=== PATIENT | male | born 1950 | race Asian ===

== ENCOUNTER 2019-12-13 16:37 | Inpatient (IN) | payer BC, OTHER, SELFPAY ==
[~2019-12-13] VITALS: Ht 165.1 cm; Wt 68.0 kg
[2019-12-13 16:45] VITALS: Ht 165.1 cm; Wt 68.0 kg
[2019-12-13 17:30] LABS: BASOPHIL % 0.1 % (0-2); PLATELET COUNT 226 x10^3mcL (130-400); RED CELL DISTRIBUTION WIDTH 13.8 % (11.5-14.5)
[2019-12-13 17:39] LABS: CALCIUM 8.2 mg/dL (8.5-10.1); CARBON DIOXIDE 23.2 mmol/L (21-32); CHLORIDE SERUM 99 mmol/L (98-107); CREATININE SERUM 0.9 mg/dL (0.7-1.3); GFR1 > 60 mL/min; GLUCOSE SERUM 173 mg/dL (74-106); POTASSIUM SERUM 3.1 mmol/L (3.5-5.1); SODIUM SERUM 133 mmol/L (136-145)
[2019-12-13 17:45] LABS: ALKALINE PHOSPHATASE 329 U/L (46-116); ALT/SGPT 169 U/L (16-63); AST/SGOT 131 U/L (15-37); BILIRUBIN TOTAL 2.39 mg/dL (0.20-1.00); LACTIC DEHYDROGENASE (LDH) 476 U/L (100-190)
[2019-12-13 17:47] LABS: ALBUMIN 1.8 g/dL (3.4-5.0); TOTAL PROTEIN, SERUM 6.1 g/dL (6.4-8.2)
[2019-12-13 18:31] LABS: UA SPECIFIC GRAVITY 1.015 (1.005-1.035); microscopic required? YES; urine erythrocyte TRACE (NEGATIVE)
[2019-12-13 18:41] LABS: C REACTIVE PROTEIN 19.1 mg/dL (<=0.9)
[2019-12-13] MEDS ORDERED: PROAIR RES117 MCG/Ac (19:28)
[2019-12-13 20:09] LABS: MAGNESIUM 1.9 mg/dL (1.8-2.4); PHOSPHOROUS 2.2 mg/dL (2.5-4.9)
[2019-12-13 20:19] LABS: T3 TOTAL 0.83 ng/mL
[2019-12-13 20:22] LABS: CHOLESTEROL/HDL RATIO 5.1
[2019-12-13 20:35] LABS: FREE T4 1.81 ng/dL (0.76-1.46); FREE THYROXINE INDEX 3.2 ug/dL (1.4-4.5); T4(THYROXINE) 8.1 ug/dL (4.7-13.3)
[2019-12-13 22:11] VITALS: BP 124/70
[2019-12-14 01:00] VITALS: BP 124/70
[2019-12-14 05:46] VITALS: BP 138/72
[2019-12-14 07:10] LABS: PLATELET COUNT 206 x10^3mcL (130-400); RED CELL DISTRIBUTION WIDTH 13.9 % (11.5-14.5)
[2019-12-14 07:30] VITALS: BP 137/80
[2019-12-14 07:32] LABS: AMPHETAMINE QUAL UR NONE DETECTED (See below)
[2019-12-14 07:36] LABS: ALBUMIN 1.7 g/dL (3.4-5.0); ALKALINE PHOSPHATASE 290 U/L (46-116); ALT/SGPT 142 U/L (16-63); AST/SGOT 59 U/L (15-37); BILIRUBIN DIRECT 1.46 mg/dL (0.0-0.2); BILIRUBIN TOTAL 2.34 mg/dL (0.20-1.00); CALCIUM 8.2 mg/dL (8.5-10.1); CHLORIDE SERUM 103 mmol/L (98-107); CREATININE SERUM 0.9 mg/dL (0.7-1.3); GFR1 > 60 mL/min; GLUCOSE SERUM 109 mg/dL (74-106); MAGNESIUM 1.9 mg/dL (1.8-2.4); PHOSPHOROUS 3.2 mg/dL (2.5-4.9); SODIUM SERUM 137 mmol/L (136-145); TOTAL PROTEIN, SERUM 6.1 g/dL (6.4-8.2)
[2019-12-14 07:53] LABS: BASOPHIL % 0 % (0-2)
[2019-12-14 12:30] VITALS: BP 129/80
[2019-12-14 17:59] VITALS: BP 105/68
[2019-12-14 21:00] VITALS: BP 126/63
[2019-12-15 05:47] VITALS: BP 114/68
[2019-12-15 06:39] LABS: PLATELET COUNT 207 x10^3mcL (130-400); RED CELL DISTRIBUTION WIDTH 13.7 % (11.5-14.5)
[2019-12-15 06:53] LABS: BASOPHIL % 0 % (0-2)
[2019-12-15 06:55] LABS: CALCIUM 7.9 mg/dL (8.5-10.1); CARBON DIOXIDE 28.2 mmol/L (21-32); CHLORIDE SERUM 103 mmol/L (98-107); GFR1 > 60 mL/min; GLUCOSE SERUM 121 mg/dL (74-106); MAGNESIUM 1.8 mg/dL (1.8-2.4); PHOSPHOROUS 4.7 mg/dL (2.5-4.9); POTASSIUM SERUM 3.8 mmol/L (3.5-5.1); SODIUM SERUM 138 mmol/L (136-145)
[2019-12-15 07:21] LABS: C REACTIVE PROTEIN 3.9 mg/dL (<=0.9)
[2019-12-15 08:30] VITALS: BP 124/84
[2019-12-15 14:20] VITALS: BP 143/93
[2019-12-15 21:00] VITALS: BP 123/76
[2019-12-16 05:49] VITALS: BP 144/77
[2019-12-16 06:57] LABS: BASOPHIL % 0.1 % (0-2); PLATELET COUNT 249 x10^3mcL (130-400); RED CELL DISTRIBUTION WIDTH 14.1 % (11.5-14.5)
[2019-12-16 07:27] LABS: ALKALINE PHOSPHATASE 261 U/L (46-116); ALT/SGPT 79 U/L (16-63); AST/SGOT 41 U/L (15-37); CALCIUM 8.7 mg/dL (8.5-10.1); CHLORIDE SERUM 100 mmol/L (98-107); GFR1 > 60 mL/min; GLUCOSE SERUM 114 mg/dL (74-106); POTASSIUM SERUM 3.5 mmol/L (3.5-5.1); SODIUM SERUM 138 mmol/L (136-145); TOTAL PROTEIN, SERUM 6.8 g/dL (6.4-8.2)
[2019-12-16 07:30] VITALS: BP 147/90
[2019-12-16 07:33] LABS: ALBUMIN 1.6 g/dL (3.4-5.0)
[2019-12-16 07:38] LABS: MAGNESIUM 1.9 mg/dL (1.8-2.4); PHOSPHOROUS 3.6 mg/dL (2.5-4.9)
[2019-12-16 09:08] LABS: C REACTIVE PROTEIN 26.7 mg/dL (<=0.9)
[2019-12-16 16:43] VITALS: BP 134/85
== END 2019-12-16 19:30 | disposition short-term general hospital (02) | DRG 871 ==
LOC: ED 16:37 → DU 18:43 → EDBEDREQ 18:52 → DU 19:54
PROVIDERS: Emergency Medicine; Student in an Organized Health Care Education/Training Program; ADMIT Internal Medicine
DX: A41.89 Other specified sepsis (principal); J18.9 Pneumonia, unspecified organism; U07.1 COVID-19; E43 Unspecified severe protein-calorie malnutrition; J96.01 Acute respiratory failure with hypoxia; E87.1 Hypo-osmolality and hyponatremia; J45.909 Unspecified asthma, uncomplicated; R74.0 Nonspecific elevation of levels of transaminase and lactic acid dehydrogenase [LDH]; E87.6 Hypokalemia; E83.51 Hypocalcemia; Z88.2 Allergy status to sulfonamides; Z79.899 Other long term (current) drug therapy; Z68.24 Body mass index [BMI] 24.0-24.9, adult; Z79.01 Long term (current) use of anticoagulants
CPT/HCPCS: 83880; 84439; 85378; 87804; G0378; J0456; J0696; J1650; J3535; J3590; J7050; J7060; Q0092